=== PATIENT | male | born 1990 | race Caucasian/White ===

== ENCOUNTER 2022-10-18 08:21 | Emergency (ER) | payer OTHER ==
[~2022-10-18] VITALS: Ht 182.8 cm; Wt 145.1 kg
== END 2022-10-18 10:24 | disposition home or self-care (01) ==
LOC: ED 08:21
DX: S63.256A Unspecified dislocation of right little finger, initial encounter (principal); Z91.040 Latex allergy status; W21.05XA Struck by basketball, initial encounter; Y93.67 Activity, basketball; Y92.39 Other specified sports and athletic area as the place of occurrence of the external cause; Y99.8 Other external cause status